=== PATIENT | female | born 1970 | race Caucasian/White ===

== ENCOUNTER 2016-12-12 17:01 | Emergency (ER) | payer BC, OTHER ==
[~2016-12-12] VITALS: Wt 111.1 kg
[~2016-12-12 17:01] MED LIST: AMOXICILLIN500 MG PO; ANAPROX DS550 MG PO; DIFLUCAN150 MG PO; HYDROCODONE BIT1 T11 PO; METFORMIN1000 MG PO; SILVADENE1% TP; SYNTHROID0.112 MG PO; Synthroid,Lev125 MCG PO; TRAMADOL HCL50 MG PO; XANAX0.5 MG PO; ZITHROMAX Z PA250 MG PO
[2016-12-12 17:07] VITALS: BP 149/98
[2016-12-12] MEDS ORDERED: SPIRONOLACTONE50 M1 PO (17:07)
[2016-12-12] MEDS ORDERED: ARTHROTEC50 MG PO (17:07)
[2016-12-12] MEDS ORDERED: ZOLPIDEM TART10 MG PO (17:07)
[2016-12-12] MEDS ORDERED: SYNTHROID0.15 MG PO (17:08)
[2016-12-12] MEDS ORDERED: PREDNISONE10 MG PO (17:25)
== END 2016-12-12 18:27 | disposition home or self-care (01) ==
LOC: ED 17:01
DX: M70.42 Prepatellar bursitis, left knee (principal); R03.0 Elevated blood-pressure reading, without diagnosis of hypertension; Z79.899 Other long term (current) drug therapy